=== PATIENT | female | born 1990 | race Caucasian/White ===

== ENCOUNTER 2017-07-05 21:40 | Emergency (ER) | payer OTHER ==
[~2017-07-05] VITALS: Ht 175.3 cm; Wt 106.4 kg
[~2017-07-05 21:40] MED LIST: HYDR-971 PO; PROM25TA10 PO
[2017-07-05 22:30] VITALS: BP 153/88
[2017-07-05] MEDS ORDERED: NITR100C62 PO (22:36)
--- NOTE | 2017-07-05 22:36 | PHYS DOC ---
Past Medical History Past Medical History: Depression, Hypertension Past Surgical History: , Tubal ligation Alcohol Use: None Drug Use: None Adult General Chief Complaint Chief Complaint: PAIN ON URINATION HPI HPI Patient is a 27 year old female presents to the emergency department stating that she's been having urinary frequency and pain with urination for the last 2 days. She states that she has having perineal pain and discomfort with urination. She denies any nausea vomiting denies any flank pain or discomfort. Patient denies any possibility of being she does state she's had a tubal ligation in the past. Review of Systems Review of Systems Constitutional: Denies fever or chills [] Eyes: Denies change in visual acuity, redness, or eye pain [] HENT: Denies nasal congestion or sore throat [] Respiratory: Denies cough or shortness of breath [] Cardiovascular: No additional information not addressed in HPI [] GI: Denies abdominal pain, nausea, vomiting, bloody stools or diarrhea [] : dysuria and hematuria [] Musculoskeletal: Denies back pain or joint pain [] Integument: Denies rash or skin lesions [] Neurologic: Denies headache, focal weakness or sensory changes [] Endocrine: Denies polyuria or polydipsia [] Allergies Allergies Allergies Coded Allergies Type Severity Reaction Last Updated Verified No Known Drug Allergies 05/22/14 No Physical Exam Physical Exam Constitutional: Well developed, well nourished, no acute distress, non-toxic appearance. [] HENT: Normocephalic, atraumatic, bilateral external ears normal, oropharynx moist, no oral exudates, nose normal. [] Eyes: PERRLA, EOMI, conjunctiva normal, no discharge. [] Neck: Normal range of motion, no tenderness, supple, no stridor. [] Cardiovascular:Heart rate regular rhythm, no murmur [] Lungs & Thorax: Bilateral breath sounds clear to auscultation [] Skin: Warm, dry, no erythema, no rash. [] Back: No tenderness, no CVA tenderness. [] Extremities: No tenderness, no cyanosis, no clubbing, ROM intact, no edema. [] Neurologic: Alert and oriented X 3, normal motor function, normal sensory function, no focal deficits noted. [] Psychologic: Affect normal, judgement normal, mood normal. [] Current Patient Data Vital Signs Vital Signs Date Time Temp Pulse Resp B/P (MAP) Pulse Ox O2 Delivery O2 Flow Rate FiO2 07/05/17 22:30 97.6 91 18 100 Room Air 97.6 Lab Values Laboratory Tests Test 07/05/17 22:32 Urine Collection Type Unknown Urine Color Yellow Urine Clarity Cloudy Urine pH 6.0 Urine Specific Usk 1.015 Urine Protein Negative mg/dL (NEG-TRACE) Urine Glucose (UA) Negative mg/dL (NEG) Urine Ketones (Stick) Negative mg/dL (NEG) Urine Blood Large (NEG) Urine Nitrite Positive (NEG) Urine Bilirubin Negative (NEG) Urine Urobilinogen Dipstick 0.2 mg/dL (0.2 mg/dL) Urine Leukocyte Esterase Large (NEG) Urine RBC Tntc /HPF (0-2) Urine WBC Tntc /HPF (0-4) Urine Squamous Epithelial Cells Mod /LPF Urine Bacteria Many /HPF (0-FEW) Urine Mucus Mod /LPF POC Urine HCG, Qualitative Hcg negative (Negative) EKG EKG [] Radiology/Procedures Radiology/Procedures [] Course & Med Decision Making Course & Med Decision Making Pertinent Labs and Imaging studies reviewed. (See chart for details) Urine was positive for urinary tract infection patient with large amount leukocyte Estrace, positive for nitrates positive for large amount of blood. Patient will be discharged home on Cipro. Patient was provided with discharge instructions, treatment regimens and follow-up recommendations. Signs and symptoms to return back to emergency department as been provided. Recommended plenty fluids such as water and cranberry juice. Instructed patient to avoid cranberry juice cocktail, carbonate beverages, citrus fruits, alcohol and caffeine as these are considered irritants to the bladder. Recommended patient follow-up primary care physician next 7-10 days to make sure she is cleared the infection. Patient agrees with discharge instructions, treatment regimens and follow-up recommendations. All questions and concerns been answered at patient' s bedside. [] Dragon Disclaimer Dragon Disclaimer This electronic medical record was generated, in whole or in part, using a voice recognition dictation system. Departure Departure Impression: Primary Impression: UTI (urinary tract infection) Disposition: 01 HOME, SELF-CARE Condition: STABLE Referrals: NO PCP (PCP) Patient Instructions: Urinary Tract Infection, [id number] Additional Instructions: Activity as tolerated. Medication as prescribed. Drink plenty of fluids such as water and cranberry juice. Avoid cranberry juice cocktail, carbonate beverages, citrus fruits, alcohol, caffeine as these are considered irritants to the bladder. Follow-up primary care physician next 7-10 days to make sure you cleared the urinary tract infection. Return back to emergency department for signs and symptoms of become worse. Scripts Ciprofloxacin Hcl (CIPRO) 500 Mg Tablet 1 TAB PO BID, #14 TAB Prov: CHRISTI ROWAN APRN 07/05/17 Problem Qualifiers Primary Impression: UTI (urinary tract infection) Urinary tract infection type: site unspecified Hematuria presence: with hematuria Qualified Codes: N39.0 - Urinary tract infection, site not specified ; R31.9 - Hematuria, unspecified CHRISTI ROWAN APRN Jul 05, 2017 22:36
[2017-07-05 22:41] LABS: BILIRUBIN,URINE NEGATIVE (NEG); GLUCOSE,URINE NEGATIVE (NEG); NITRITE,URINE POSITIVE (NEG); PROTEIN,URINE NEGATIVE (NEG-TRACE); UROBILINOGEN,URINE 0.2 mg/dL (0.2 mg/dL)
[2017-07-05 22:48] LABS: BACTERIA,URINE MANY /HPF (0-FEW); RBC,URINE TNTC /HPF (0-2); SQUAMOUS EPITHELIAL CELL,UR MOD /LPF; WBC,URINE TNTC /HPF (0-4)
[2017-07-05] MEDS ORDERED: CIPR500T94 PO (22:50)
== END 2017-07-05 22:55 | disposition home or self-care (01) ==
LOC: ER 21:40
DX: N39.0 Urinary tract infection, site not specified (principal); F32.9 Major depressive disorder, single episode, unspecified; I10 Essential (primary) hypertension; Z98.51 Tubal ligation status
CPT/HCPCS: 81001; 81025; 87086; 99284

== ENCOUNTER 2018-04-18 07:03 | Emergency (ER) | payer OTHER ==
[2018-04-18 07:31] LABS: URINE HCG POC HCG NEGATIVE (Negative)
[2018-04-18 07:33] LABS: BILIRUBIN,URINE NEGATIVE (NEG); CLARITY,URINE CLEAR; COLOR,URINE YELLOW; GLUCOSE,URINE NEGATIVE (NEG); NITRITE,URINE NEGATIVE (NEG); PROTEIN,URINE NEGATIVE (NEG-TRACE); UROBILINOGEN,URINE 0.2 mg/dL (0.2 mg/dL)
[2018-04-18 07:56] LABS: BACTERIA,URINE 0 /HPF (0-FEW); RBC,URINE 0 /HPF (0-2); SQUAMOUS EPITHELIAL CELL,UR MOD /LPF; WBC,URINE OCC /HPF (0-4)
== END 2018-04-18 08:43 | disposition home or self-care (01) ==
LOC: ER 07:03
DX: M54.5 Low back pain (principal); M79.604 Pain in right leg; I10 Essential (primary) hypertension; Z90.49 Acquired absence of other specified parts of digestive tract
CPT/HCPCS: 81001; 81025; 99283

== ENCOUNTER 2018-08-16 08:18 | Emergency (ER) | payer OTHER ==
[~2018-08-16] VITALS: Ht 175.3 cm; Wt 117.9 kg
[~2018-08-16 08:18] MED LIST changes: +CIPR500T94 PO; +DIAZ5TAB PO; +IBUP-1060 PO; +NITR100C62 PO
[2018-08-16] MEDS ORDERED: IPRATRPIUM/ALBUTEROL 0.5/2.5MG 3 ML NEBU. NEB ONE (09:00)
[2018-08-16] MEDS ORDERED: BENZONATATE 100 MG CAPSULE. PO ONE (09:00)
[2018-08-16] MEDS ORDERED: predniSONE 10 MG TABLET PO ONE (09:00)
[2018-08-16 09:14] VITALS: BP 163/99
--- NOTE | 2018-08-16 09:25 | RAD ---
CHEST PA LATERAL History: cough and chest pain x 1 week Comparison: May 23, 2008 Findings: 2 views of the chest are submitted. Heart size is stable. There is no pleural fluid, pneumothorax, lobar consolidation. There is questionable mild increased interstitial opacity. Impression: 1. There is no lobar infiltrate. There is questionable mild increased interstitial opacity, possibly mild interstitial infiltrate. Electronically signed by: River Valencia MD (08/16/2018 9:22 AM) [id number]
--- NOTE | 2018-08-16 10:23 | PHYS DOC ---
Past Medical History Past Medical History: Hypertension Past Surgical History: Cholecystectomy, Smoking: Cigarettes, 1 Pack Per Day Alcohol Use: Rarely Drug Use: None Adult General Chief Complaint Chief Complaint: COUGH HPI HPI Patient is a 28 year old female with history of smoking, uncontrolled hypertension, who presents today complaining of a productive cough with chest tightness that has been going on for one week. Patient denies any fever. Review of Systems Review of Systems Constitutional: Denies fever or chills [] Eyes: Denies change in visual acuity, redness, or eye pain [] HENT: Denies nasal congestion or sore throat [] Respiratory: Reports cough denies shortness of breath [] Cardiovascular: No additional information not addressed in HPI [] GI: Denies abdominal pain, nausea, vomiting, bloody stools or diarrhea [] : Denies dysuria or hematuria [] Musculoskeletal: Denies back pain or joint pain [] Integument: Denies rash or skin lesions [] Neurologic: Denies headache, focal weakness or sensory changes [] Endocrine: Denies polyuria or polydipsia [] All other systems were reviewed and found to be within normal limits, except as documented in this note. Current Medications Current Medications Current Medications Medications (Trade) Dose Ordered Sig/Gabriel Start Time Stop Time Status Last Admin Dose Admin Albuterol/ Ipratropium (Duoneb) 3 ml 1X ONCE 08/16/18 09:00 08/16/18 09:01 DC 08/16/18 09:07 3 ML Benzonatate (Tessalon Perle) 100 mg 1X ONCE 08/16/18 09:00 08/16/18 09:01 DC 08/16/18 09:13 100 MG Prednisone (Prednisone) 50 mg 1X ONCE 08/16/18 09:00 08/16/18 09:01 DC 08/16/18 09:13 50 MG Allergies Allergies Allergies Coded Allergies Type Severity Reaction Last Updated Verified No Known Drug Allergies 05/22/14 No Physical Exam Physical Exam Constitutional: Well developed, well nourished, no acute distress, non-toxic appearance. [] HENT: Normocephalic, atraumatic, bilateral external ears normal, oropharynx moist, no oral exudates, nose normal. [] Eyes: PERRLA, EOMI, conjunctiva normal, no discharge. [] Neck: Normal range of motion, no tenderness, supple, no stridor. [] Cardiovascular:Heart rate regular rhythm, no murmur [] Lungs & Thorax: tight chest with diminished breath sounds throughout Abdomen: Bowel sounds normal, soft, no tenderness, no masses, no pulsatile masses. [] Skin: Warm, dry, no erythema, no rash. [] Back: No tenderness, no CVA tenderness. [] Extremities: No tenderness, no cyanosis, no clubbing, ROM intact, no edema. [] Neurologic: Alert and oriented X 3, normal motor function, normal sensory function, no focal deficits noted. [] Psychologic: Affect normal, judgement normal, mood normal. [] Current Patient Data Vital Signs Vital Signs Date Time Temp Pulse Resp B/P (MAP) Pulse Ox O2 Delivery O2 Flow Rate FiO2 08/16/18 09:14 87 20 163/99 (120) 97 08/16/18 09:07 Room Air 08/16/18 08:44 98.3 98.3 EKG EKG [] Radiology/Procedures Radiology/Procedures PROCEDURE: CHEST PA & LATERAL CHEST PA LATERAL History: cough and chest pain x 1 week Comparison: May 23, 2008 Findings: 2 views of the chest are submitted. Heart size is stable. There is no pleural fluid, pneumothorax, lobar consolidation. There is questionable mild increased interstitial opacity. Impression: 1. There is no lobar infiltrate. There is questionable mild increased interstitial opacity, possibly mild interstitial infiltrate. Electronically signed by: Ramon Davies MD (08/16/2018 9:22 AM) [id number] DICTATED and SIGNED BY: RAMON DAVIES MD DATE: 08/16/18919 Course & Med Decision Making Course & Med Decision Making Pertinent Labs and Imaging studies reviewed. (See chart for details) This is a 28-year-old female patient with history of smoking presenting today with a cough and chest tightness for one week. Patient was given DuoNeb treatment, prednisone and Tessalon Perles. Symptoms have improved. Chest x-ray interpreted by radiologist was noted for possible mild increased interstitial opacity, possibly mild interstitial infiltrate. Patient was discharged on azithromycin. Discharged on albuterol inhaler and Tessalon Perles. Encouraged to consider smoking cessation and follow-up with the primary care doctor as soon as she can. She also has hypertension and does not follow- up with any provider. Blood pressure 163/99 in the ED. Emphasized to patient the importance of establishing care with a primary care doctor for blood pressure management Dragon Disclaimer Dragon Disclaimer This electronic medical record was generated, in whole or in part, using a voice recognition dictation system. Departure Departure Impression: Primary Impression: Interstitial pneumonia Additional Impressions: Smoking addiction Bronchitis Disposition: HOME, SELF-CARE Condition: STABLE Referrals: NO PCP (PCP) Follow-up with your primary care doctor in the course of next week Patient Instructions: Acute Bronchitis, Pneumonia, Adult, Smoking Cessation Additional Instructions: You were evaluated in the emergency room, we recommend you consider smoking cessation, take the prescribed medications as ordered. Your blood pressure was high. You really need to follow-up with a primary care doctor to be put on blood pressure medications. Scripts Prednisone (PREDNISONE) 50 Mg Tablet 1 TAB PO DAILY, #5 TAB Prov: BOLA SHER APRN 08/16/18 Benzonatate (TESSALON PERLE) 100 Mg Capsule 1 CAP PO TID, #30 CAP Prov: BOLA SHER APRN 08/16/18 Albuterol Sulfate (VENTOLIN HFA INHALER) 18 Gm Hfa.aer.ad 2 PUFF INH Q4HRS for FOR ASTHMA, #1 INHALER 0 Refills Prov: BOLA SHER APRN 08/16/18 Azithromycin (ZITHROMAX) 250 Mg Tablet 1 PKG PO UD, #1 PKG Prov: BOLA SHER APRN 08/16/18 Attending Signature Attending Signature I have reviewed the PA/HIM SPECIALIST's note and plan of care. I was available for consultation as needed during the patient's visit in the emergency department. I agree with the clinical impression, plan, and disposition. Problem Qualifiers BOLA SHER APRN Aug 16, 2018 10:23 BERT BOYD DO Aug 16, 2018 21:51
[2018-08-16] MEDS ORDERED: AZIT250T PO (10:31)
[2018-08-16] MEDS ORDERED: BENZ100C PO (10:31)
[2018-08-16] MEDS ORDERED: VENTOLIN HFA18 GM INH (10:31)
[2018-08-16] MEDS ORDERED: PRED50TA PO (10:31)
== END 2018-08-16 10:39 | disposition home or self-care (01) ==
LOC: ER 08:18
DX: J84.9 Interstitial pulmonary disease, unspecified (principal); J40 Bronchitis, not specified as acute or chronic; F17.210 Nicotine dependence, cigarettes, uncomplicated; I10 Essential (primary) hypertension; Z90.49 Acquired absence of other specified parts of digestive tract
CPT/HCPCS: 71046; 94640; 99284; J7512; J7620

== ENCOUNTER 2018-10-09 17:52 | Emergency (ER) | payer OTHER ==
[~2018-10-09] VITALS: Ht 175.3 cm; Wt 113.4 kg
[~2018-10-09 17:52] MED LIST changes: +AZIT250T PO; +BENZ100C PO; +HYDR-3164 PO; -HYDR-971 PO; +PRED50TA PO; +VENTOLIN HFA18 GM INH
[2018-10-09 18:36] VITALS: BP 159/101
[2018-10-09] MEDS ORDERED: IBUP-1007 PO (18:58)
--- NOTE | 2018-10-09 18:59 | PHYS DOC ---
Past Medical History Past Medical History: Hypertension Past Surgical History: Cholecystectomy, Additional Information: quit smoking 08/2018 Alcohol Use: Rarely Drug Use: None Adult General Chief Complaint Chief Complaint: ANKLE PROBLEM HPI HPI Patient is a 28 year old female who presents with bilateral hamstring couple weeks ago and now has been compensating by using her left leg more, safer the right hamstring. She now has left heel pain only when up and putting pressure on it. He states she took her last 2 hydrocodone. Review of Systems Review of Systems Constitutional: Denies fever or chills [] Eyes: Denies change in visual acuity, redness, or eye pain [] HENT: Denies nasal congestion or sore throat [] Respiratory: Denies cough or shortness of breath [] Cardiovascular: No additional information not addressed in HPI [] GI: Denies abdominal pain, nausea, vomiting, bloody stools or diarrhea [] : Denies dysuria or hematuria [] Musculoskeletal: Denies back pain. left heel pain joint pain [] Integument: Denies rash or skin lesions [] Neurologic: Denies headache, focal weakness or sensory changes [] All other systems were reviewed and found to be within normal limits, except as documented in this note. Allergies Allergies Allergies Coded Allergies Type Severity Reaction Last Updated Verified No Known Drug Allergies 05/22/14 No Physical Exam Physical Exam Constitutional: Well developed, well nourished, no acute distress, non-toxic appearance. [] HENT: Normocephalic, atraumatic, bilateral external ears normal, oropharynx moist, no oral exudates, nose normal. [] Eyes: PERRLA, EOMI, conjunctiva normal, no discharge. [] Neck: Normal range of motion, no tenderness, supple, no stridor. [] Cardiovascular:Heart rate regular rhythm, no murmur [] Lungs & Thorax: Bilateral breath sounds clear to auscultation [] Abdomen: Bowel sounds normal, soft, no tenderness, no masses, no pulsatile masses. [] Skin: Warm, dry, no erythema, no rash. [] Back: No tenderness, no CVA tenderness. [] Extremities: No tenderness, no cyanosis, no clubbing, ROM intact, no edema. [] Neurologic: Alert and oriented X 3, normal motor function, normal sensory function, no focal deficits noted. [] Psychologic: Affect normal, judgement normal, mood normal. [] Current Patient Data Vital Signs Vital Signs Date Time Temp Pulse Resp B/P (MAP) Pulse Ox O2 Delivery O2 Flow Rate FiO2 10/09/18 18:36 98.2 95 18 159/101 (120) 96 Room Air 98.2 EKG EKG [] Radiology/Procedures Radiology/Procedures [] Course & Med Decision Making Course & Med Decision Making Patient is a 28 year old female who presents with bilateral hamstring couple weeks ago and now has been compensating by using her left leg more, safer the right hamstring. She now has left heel pain only when up and putting pressure on it. He states she took her last 2 hydrocodone. There is no swelling, deformity, bruising to the left heel. There is no tenderness to palpation she has intact range of motion. She states only hurts when she is up and standing on it. Patient is to continue taking ibuprofen and I will give her an Kendall wrap and crutches. Patient is told to try to stay off of her affected extremities as much as possible. Patient likely has a tendinitis of her heel. There is no swelling or laxity of the foot, heel or ankle. Pedal pulses present and strong. Cap refill less than 3 seconds. Ambulatory with a steady gait. Patient follow- up with her primary care if needed. Dragon Disclaimer Kiesha Disclaimer This electronic medical record was generated, in whole or in part, using a voice recognition dictation system. Departure Departure Impression: Primary Impression: Achilles bursitis or tendinitis Disposition: 01 HOME, SELF-CARE Condition: STABLE Referrals: NO PCP (PCP) Patient Instructions: Achilles Tendinitis, Achilles Tendinitis, with Rehab- [facility] Additional Instructions: Follow up with primary care. Use ice, heat, and kendall bandage. Try to stay off of the effected extremity as much as possible. Use Ibuprofen for pain. Scripts Ibuprofen (IBUPROFEN) 600 Mg Tablet 600 MG PO PRN Q6HRS PRN for INFLAMMATION, #20 TAB Prov: CHRISTI NICOLAS DIRECTOR FUNERAL 10/09/18 CHRISTI NICOLAS DIRECTOR FUNERAL Oct 09, 2018 18:59
== END 2018-10-09 19:11 | disposition home or self-care (01) ==
LOC: ER 17:52
DX: M76.62 Achilles tendinitis, left leg (principal); I10 Essential (primary) hypertension; Z90.49 Acquired absence of other specified parts of digestive tract; Z87.891 Personal history of nicotine dependence
CPT/HCPCS: 99282